=== PATIENT | female | born 1980 | race Caucasian/White ===

== ENCOUNTER 2018-05-29 17:11 | Emergency (ER) | payer OTHER ==
[~2018-05-29] VITALS: Ht 162.6 cm; Wt 70.3 kg
[2018-05-29 17:19] VITALS: BP_SYST 137
[2018-05-29 19:15] VITALS: BP_SYST 130
== END 2018-05-29 19:15 | disposition home or self-care (01) ==
LOC: SED 17:11
DX: R20.2 Paresthesia of skin (principal); R03.0 Elevated blood-pressure reading, without diagnosis of hypertension
CPT/HCPCS: 72125-TC; 99284